=== PATIENT | female | born 1950 | race Two or more races ===

== ENCOUNTER 2020-11-23 07:15 | Inpatient (IN) | payer OTHER ==
[~2020-11-23] VITALS: Ht 152.4 cm; Wt 71.2 kg
[2020-11-23] MEDS ORDERED: LEVO-T100 MCG PO (10:00)
[2020-11-23] MEDS ORDERED: ZESTRIL20 MG PO (10:01)
[2020-11-23] MEDS ORDERED: ZOCOR20 MG PO (10:02)
[2020-11-30] MEDS ORDERED: DICLOFENAC SOD100 GM (11:04)
[2020-12-02] MEDS ORDERED: OXYC1TAB9 PO (06:34)
[2020-12-02] MEDS ORDERED: BACTRIM DS TAB1 EACH PO (06:34)
[2020-12-02] MEDS ORDERED: XARELTO10 MG PO (06:34)
[2020-12-02] MEDS ORDERED: INTEGRA PLUS C1 EACH PO (06:34)
== END 2020-12-02 14:03 | DRG 470 ==
LOC: SURH 11-30 05:23 → O/R 11-30 05:23 → SURH 11-30 07:00
PROVIDERS: ADMIT Orthopaedic Surgery Sports Medicine; ATTEND Orthopaedic Surgery Sports Medicine
PROC: 0SRD0J9 Replacement of Left Knee Joint with Synthetic Substitute, Cemented, Open Approach (ICD-10-PCS; principal; 2020-11-30 07:00)
DX: M17.12 Unilateral primary osteoarthritis, left knee (principal); I10 Essential (primary) hypertension; Z20.822 Contact with and (suspected) exposure to COVID-19

== ENCOUNTER 2020-12-13 15:59 | Emergency (ER) | payer OTHER ==
[~2020-12-13] VITALS: Ht 162.6 cm; Wt 60.3 kg
[~2020-12-13 15:59] MED LIST: BACTRIM DS TAB1 EACH PO; DICLOFENAC SOD100 GM; INTEGRA PLUS C1 EACH PO; LEVO-T100 MCG PO; OXYC1TAB9 PO; XARELTO10 MG PO; ZESTRIL20 MG PO; ZOCOR20 MG PO
== END 2020-12-13 23:50 | disposition home or self-care (01) ==
LOC: ER 15:59
DX: I95.2 Hypotension due to drugs (principal); T39.1X5A Adverse effect of 4-Aminophenol derivatives, initial encounter; T40.425A Adverse effect of tramadol, initial encounter